=== PATIENT | male | born 1930 | race Caucasian/White ===

== ENCOUNTER 2016-09-22 11:26 | Emergency (ER) | payer MEDICARE, BC ==
[2016-09-22] MEDS ORDERED: SODIUM CHLORIDE 0.9% 1,000 ML IV STA (12:08)
--- NOTE | 2016-09-22 12:36 | ED ---
General Adult HPI - General Chief complaint: Extremity Problem,Nontraumatic Stated complaint: LEFT SIDE COLD AND NUMBNESS Time Seen by Provider: 09/22/16 11:54 Source: patient, RN notes reviewed Mode of arrival: ambulatory Limitations: no limitations - History of Present Illness Initial comments: Patient a 85-year-old male who presents emergency room today with chief complaint of cold feeling to left side of his body times one month. Patient does admit that he's been experiencing cold sensation to the left upper and lower extremity over the past month. He states it's been a constant feeling and feels cold to the touch. Patient also admits to feeling some discomfort to the left side of his face. He describes it as pressure. Patient admits is been constant over the last month as well. He denies any other complaints or symptoms. States never had some symptoms this in the past. Patient denies any recent fever, shortness of breath, chest pain, back pain, abdominal pain, nausea or vomiting, dysuria or hematuria, constipation or diarrhea, headaches or visual changes, or any other complaints. - Related Data Home Medications Medication Instructions Recorded Confirmed Aspirin EC [Ecotrin] 325 mg PO DAILY 01/14/14 09/22/16 Atorvastatin [Lipitor] 40 mg PO DAILY 01/14/14 09/22/16 Isosorbide Mononitrate [Imdur] 30 mg PO DAILY 01/14/14 09/22/16 Metoprolol Tartrate [Lopressor] 25 mg PO DAILY 01/14/14 09/22/16 Allergies Allergy/AdvReac Type Severity Reaction Status Date / Time No Known Allergies Allergy Verified 09/22/16 12:17 Review of Systems ROS Statement: Those systems with pertinent positive or pertinent negative responses have been documented in the HPI. ROS Other: All systems not noted in ROS Statement are negative. Past Medical History Past Medical History: Coronary Artery Disease (CAD), Cancer, Chest Pain / Angina , Hyperlipidemia Additional Past Medical History / Comment(s): skin cancer History of Any Multi-Drug Resistant Organisms: None Reported Past Surgical History: Heart Catheterization, Orthopedic Surgery Additional Past Surgical History / Comment(s): left knee arthroscopy, TOTAL LEFT KNEE 03/18/15 Past Anesthesia/Blood Transfusion Reactions: No Reported Reaction Past Psychological History: No Psychological Hx Reported Smoking Status: Never smoker Past Alcohol Use History: Occasional Past Drug Use History: None Reported - Past Family History Father Family Medical History: CVA/TIA Brother(s) Family Medical History: Deep Vein Thrombosis (DVT) General Exam - General Exam Comments Initial Comments: General: The patient is awake and alert, in no distress, and does not appear acutely ill. Eye: Pupils are equal, round and reactive to light, extra-ocular movements are intact. No nystagmus. There is normal conjunctiva bilaterally. No signs of icterus. Ears, nose, mouth and throat: There are moist mucous membranes and no oral lesions. Neck: The neck is supple, there is no tenderness or JVD. Cardiovascular: There is a regular rate and rhythm. No murmur, rub or gallop is appreciated. Respiratory: Lungs are clear to auscultation, respirations are non-labored, breath sounds are equal. No wheezes, stridor, rales, or rhonchi. Gastrointestinal: Soft, non-distended, non-tender abdomen without masses or organomegaly noted. There is no rebound or guarding present. No CVA tenderness. Bowel sounds are unremarkable. Musculoskeletal: Normal ROM, no tenderness. Strength 5/5. Sensation intact. Pulses equal bilaterally 2+. Cap refill less than 2 seconds. Neurological: A&O x 3. CN II-XII intact, There are no obvious motor or sensory deficits. Coordination appears grossly intact. Speech is normal. Skin: Skin is warm and dry and no rashes or lesions are noted. Psychiatric: Cooperative, appropriate mood & affect, normal judgment. Limitations: no limitations Course Vital Signs 09/22/16 09/22/16 11:36 12:38 Temperature 97.8 F 96.8 F L Pulse Rate 60 54 L Respiratory 20 16 Rate Blood Pressure 123/73 122/66 O2 Sat by Pulse 98 949 H Oximetry EKG Findings - EKG Comments: EKG Findings:: EKG performed at 1220: She says regarding 53 bpm. MS interval 202. QRS 98. QT/QTc 440/412. No acute ST changes. Medical Decision Making - Medical Decision Making Patient reexamined at this time shows no signs of distress. Patient's labs been reviewed are unremarkable. Patient's CT of the head is negative for any acute abnormalities. Case was discussed and seen by attending physician . Patient will be discharged as symptoms have been ongoing over the past month. Patient stable here the emergency room feels comfortable being discharged following up. Was discussed with neurology. Advised to return to emergency room if any symptoms increase or worsen or for any other concerns. - Lab Data Result diagrams: 09/22/16 12:30 09/22/16 12:30 Lab Results 09/22/16 09/22/16 09/22/16 Range/Units 12:30 12:30 12:30 WBC 6.7 (3.8-10.6) k/uL RBC 4.35 (4.30-5.90) m/uL Hgb 14.0 (13.0-17.5) gm/dL Hct 41.1 (39.0-53.0) % MCV 94.5 (80.0-100.0) fL MCH 32.1 (25.0-35.0) pg MCHC 33.9 (31.0-37.0) g/dL RDW 13.3 (11.5-15.5) % Plt Count 196 (150-450) k/uL Neutrophils % 70 % Lymphocytes % 19 % Monocytes % 6 % Eosinophils % 3 % Basophils % 0 % Neutrophils # 4.7 (1.3-7.7) k/uL Lymphocytes # 1.3 (1.0-4.8) k/uL Monocytes # 0.4 (0-1.0) k/uL Eosinophils # 0.2 (0-0.7) k/uL Basophils # 0.0 (0-0.2) k/uL PT 10.7 (9.0-12.0) sec INR 1.1 (<1.1) APTT 25.1 (22.0-30.0) sec Sodium 138 (137-145) mmol/L Potassium 4.5 (3.5-5.1) mmol/L Chloride 104 (98-107) mmol/L Carbon Dioxide 24 (22-30) mmol/L Anion Gap 10 mmol/L BUN 18 (9-20) mg/dL Creatinine 0.80 (0.66-1.25) mg/dL Est GFR (MDRD) Af Amer >60 (>60 ml/min/1.73 sqM) Est GFR (MDRD) Non-Af >60 (>60 ml/min/1.73 sqM) Glucose 91 (74-99) mg/dL Calcium 9.1 (8.4-10.2) mg/dL Total Bilirubin 0.8 (0.2-1.3) mg/dL AST 29 (17-59) U/L ALT 24 (21-72) U/L Alkaline Phosphatase 98 (38-126) U/L Troponin I (0.000-0.034) ng/mL Total Protein 6.5 (6.3-8.2) g/dL Albumin 3.9 (3.5-5.0) g/dL 09/22/16 Range/Units 12:30 WBC (3.8-10.6) k/uL RBC (4.30-5.90) m/uL Hgb (13.0-17.5) gm/dL Hct (39.0-53.0) % MCV (80.0-100.0) fL MCH (25.0-35.0) pg MCHC (31.0-37.0) g/dL RDW (11.5-15.5) % Plt Count (150-450) k/uL Neutrophils % % Lymphocytes % % Monocytes % % Eosinophils % % Basophils % % Neutrophils # (1.3-7.7) k/uL Lymphocytes # (1.0-4.8) k/uL Monocytes # (0-1.0) k/uL Eosinophils # (0-0.7) k/uL Basophils # (0-0.2) k/uL PT (9.0-12.0) sec INR (<1.1) APTT (22.0-30.0) sec Sodium (137-145) mmol/L Potassium (3.5-5.1) mmol/L Chloride (98-107) mmol/L Carbon Dioxide (22-30) mmol/L Anion Gap mmol/L BUN (9-20) mg/dL Creatinine (0.66-1.25) mg/dL Est GFR (MDRD) Af Amer (>60 ml/min/1.73 sqM) Est GFR (MDRD) Non-Af (>60 ml/min/1.73 sqM) Glucose (74-99) mg/dL Calcium (8.4-10.2) mg/dL Total Bilirubin (0.2-1.3) mg/dL AST (17-59) U/L ALT (21-72) U/L Alkaline Phosphatase (38-126) U/L Troponin I <0.012 (0.000-0.034) ng/mL Total Protein (6.3-8.2) g/dL Albumin (3.5-5.0) g/dL Disposition Clinical Impression: Paresthesia Disposition: HOME SELF-CARE Condition: Good Instructions: Paresthesia (ED) Additional Instructions: Please follow-up with family doctor/neurologist in the next 2 days. Please return to emergency room if the symptoms increase or worsen or for any other concerns. Referrals: None,Stated [Primary Care Provider] - 1-2 days Monet Gilmore MD [STAFF PHYSICIAN] - 1-2 days Time of Disposition: 14:32
[2016-09-22 12:45] LABS: Basophils % (A) 0 %; Eosinophils # (A) 0.2 k/uL (0-0.7); Eosinophils % (A) 3 %; HCT 41.1 % (39.0-53.0); HDW 2.36; Luc # (Auto) 0.11; Luc % (Auto) 2; Lymphocytes # (A) 1.3 k/uL (1.0-4.8); Lymphocytes % (A) 19 %; MCH 32.1 pg (25.0-35.0); MCHC 33.9 g/dL (31.0-37.0); MCV 94.5 fL (80.0-100.0); Mean Platelet Volume 6.9; Monocytes # (A) 0.4 k/uL (0-1.0); Monocytes % (A) 6 %; Neutrophils # (A) 4.7 k/uL (1.3-7.7); Neutrophils % (A) 70 %; RBC 4.35 m/uL (4.30-5.90); RDW 13.3 % (11.5-15.5); WBC 6.7 k/uL (3.8-10.6); WBC (Perox) 6.75
[2016-09-22 12:52] LABS: INR 1.1 (<1.1); Partial Thromboplastin Time 25.1 sec (22.0-30.0); Prothrombin Time 10.7 sec (9.0-12.0)
[2016-09-22 13:16] VITALS: RESP 16
--- NOTE | 2016-09-22 13:21 | CT ---
EXAMINATION TYPE: CT brain wo con DATE OF EXAM: 09/22/2016 1:14 PM COMPARISON: Previous study dated 01/24/2011 HISTORY: Patient having weakness and pain CT DLP: 1063.6 mGycm Automated exposure control for dose reduction was used. FINDINGS: There are generalized changes of sulcal prominence and ventriculomegaly, compatible with atrophic aruna nge. There is diffuse periventricular white matter lucency, compatible with chronic ischemic change. There is no acute focal lesion, mass effect or midline shift identified. I do not see evidence of int racranial blood. There is minimal physiologic calcification of the basal ganglia. Visualized portions of the paranasal sinuses and mastoids are clear. No depressed skull fracture is s een. IMPRESSION: 1. NO ACUTE INTRACRANIAL ABNORMALITY. 2. ATROPHIC CHANGE. 3. CHRONIC WHITE MATTER ISCHEMIC CHANGE.
[2016-09-22 13:24] LABS: ALT 24 U/L (21-72); AST 29 U/L (17-59); Alkaline Phosphatase 98 U/L (38-126); Anion Gap 10 mmol/L; Blood Urea Nitrogen 18 mg/dL (9-20); Calcium 9.1 mg/dL (8.4-10.2); Carbon Dioxide 24 mmol/L (22-30); Chloride 104 mmol/L (98-107); Glucose 91 mg/dL (74-99); Non-African American GFR(MDRD) >60 (>60 ml/min/1.73 sqM); Potassium 4.5 mmol/L (3.5-5.1); Sodium 138 mmol/L (137-145); Total Bilirubin 0.8 mg/dL (0.2-1.3); Total Protein 6.5 g/dL (6.3-8.2)
[2016-09-22 15:33] VITALS: BP 126/66; PULSE 57; TEMP 98
== END 2016-09-22 15:32 | disposition home or self-care (01) ==
LOC: EC 11:26
DX: R20.2 Paresthesia of skin (principal); E78.5 Hyperlipidemia, unspecified; I25.10 Atherosclerotic heart disease of native coronary artery without angina pectoris; Z85.828 Personal history of other malignant neoplasm of skin; Z79.82 Long term (current) use of aspirin; Z79.899 Other long term (current) drug therapy
CPT/HCPCS: 36415; 70450; 80053; 84484; 85025; 85610; 85730; 93005; 96360; 96361; 99284

== ENCOUNTER → 2017-11-27 | Outpatient (CLI) | payer MEDICARE, BC ==
--- NOTE | 2017-12-06 09:36 | P.ARTDOP ---
Arterial Doppler LOWER EXTREMITY ARTERIAL DOPPLER: DATE OF SERVICE: 11/27/2017 Reason for study: Bilateral foot numbness. Doppler waveforms: Multiphasic bilaterally throughout. Pulse volume recording: Mild distal blunting on the left otherwise normal. Pressure gradients: None. Ankle-brachial indices: Greater than 1 bilaterally. Toe pressures: 91 on the right, 112 on the left Impression: Normal study.
== END | disposition home or self-care (01) ==
LOC: RADUSWWP 08:51
PROVIDERS: ATTEND Family Medicine
DX: I73.9 Peripheral vascular disease, unspecified (principal)
CPT/HCPCS: 93923

== ENCOUNTER → 2018-11-30 | Outpatient (CLI) | payer MEDICARE, BC ==
--- NOTE | 2018-11-30 09:43 | FL ---
EXAMINATION TYPE: FL sniff test without CXR DATE OF EXAM: 11/30/2018 COMPARISON: Correlation chest x-ray 11/21/2018 HISTORY: 88-year-old male with dysphonia, hoarseness, difficulty swallowing, coughing TECHNIQUE: Real-time fluoroscopy during patient breathing. Total fluoroscopy time: 1 minute 7 seconds. Total images: 18. FINDINGS: At baseline, there is asymmetric elevation of the left hemidiaphragm. During normal quiet respirations, there is normal directional movement and excursion of the diaphragm s. During deep breathing, similar normal direction movement is noted. However, during sniffing maneuver, there is initial hesitancy followed by a short moment of paradoxic al movement of the right hemidiaphragm prior to inferior excursion. IMPRESSION: Slight hesitancy and then initial paradoxical movement of the left hemidiaphragm before proceeding to expected inferior movement. 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
--- NOTE | 2018-11-30 10:13 | CT ---
EXAMINATION TYPE: CT neck chest w con DATE OF EXAM: 11/30/2018 COMPARISON: Radiographs 11/21/2018 HISTORY: 88-year-old male Dysphonia TECHNIQUE: Contiguous axial scanning of the neck and chest performed with IV Contrast, patient inject ed with 100 ml mL of Isovue 300. Coronal/sagittal reconstructions performed. CT DLP: 1075 mGycm Automated exposure control for dose reduction was used. FINDINGS: NECK: Visualized intracranial structures show dominant left vertebral artery. The right vertebral artery ma y terminate as a high,. Generalized supratentorial volume loss with secondary prominence to the ventr icular system. Visualized orbits and globes and mastoid air cells appear clear. Cerumen within the left greater than right external auditory canals. Moderate mucosal thickening right maxillary sinus with trace air-fluid level. Nasopharynx appears clear. Nonspecific 4 mm calcification involving the left epiglottis. Oropharynx otherwise clear. Some limita tion in assessment of the oropharynx due to prominent dental amalgam artifacts. Gliotic subglottic structures as well as the tracheal column appear clear. Tiny 3 mm nodule in each lobe of the thyroid gland. Submandibular glands are satisfactory. Bilateral parotid glands are atrophic. Moderate atherosclerotic calcifications at the right carotid bifurcation. There is a 1.9 x 1.4 x 2.1 cm soft tissue nodule in the high left submandibular space located superio r to the left submandibular gland, referred to axial image 40, coronal image 59, and sagittal image 2 5. Otherwise, no cervical lymphadenopathy identified. Moderate to advanced multilevel spondylotic change in the cervical spine. Degenerative interbody anky losis at C3-C4 with reversal of the normal cervical lordosis and DISH. CHEST: Heart normal size without pericardial effusion. Aorta normal caliber with bowing configuration to the aortic arch and mild atherosclerotic arch calci fications. Calcified right hilar lymph nodes compatible with prior granulomatous disease. No thoracic lymphadeno andrew by CT size criteria. There is right suprahilar/tracheobronchial angle soft tissue density measuring 1.9 x 1.5 x 2.8 cm, re sandrine to axial image 22 and coronal image 40. Otherwise, no thoracic lymphadenopathy. Possible 7 mm right midlung pulmonary nodule versus confluence of vessels, axial image 30. 4 mm anterior right midlung pulmonary nodule, axial image 28. Strandy atelectasis or scarring anterior left midlung. Calcified granuloma basilar right middle lobe. Visualized upper abdomen shows a tiny hilar splenule. Bones: Moderate degenerative change throughout the thoracic spine. Severe degenerative changes of th e right shoulder with a large 5.3 cm anterior ganglion cyst versus joint effusion. There is atrophy o f the right-sided rotator cuff musculature. IMPRESSION: NECK: 1. A 2.1 X 1.9 X 1.4 CM HIGH LEFT SUBAREOLAR SPACE SOFT TISSUE NODULE SUSPICIOUS FOR AN ENLARGED LYMP H NODE LOCATED ABOVE THE SUBMANDIBULAR GLAND. CONSIDER TARGETED ULTRASOUND FOR LOCALIZATION AND TO DE TERMINE IF THIS WOULD BE AMENABLE TO PERCUTANEOUS TISSUE SAMPLING. 2. MODERATE CHRONIC RIGHT MAXILLARY SINUS DISEASE. GIVEN THE TRACE AIR-FLUID LEVEL, CORRELATE FOR POS SIBLE SUPERIMPOSED ACUTE SINUSITIS. CHEST: 1. SOME SOFT TISSUE DENSITY IN THE RIGHT SUPRAHILAR/TRACHEOBRONCHIAL ANGLE REGION MEASURING UP TO 2.8 X 1.9 X 1.5 CM. SCARRING AND EARLY NEOPLASM ARE DIFFERENTIAL CONSIDERATIONS. CONSIDER PET/CT TO EVAL UATE THIS WELL THE FINDING IN THE LEFT UPPER NECK. 2. A 7 MM AND 4 MM RIGHT MID LUNG PULMONARY NODULES WARRANT CLOSE SURVEILLANCE. 3. PRIOR GRANULOMATOUS DISEASE. 4. END-STAGE RIGHT SHOULDER OA. ATROPHIC RIGHT-SIDED ROTATOR CUFF MUSCULATURE SUGGESTING CHRONIC ROTA TOR CUFF TEARS.
== END | disposition home or self-care (01) ==
LOC: RADCTMAIN 08:23
PROVIDERS: ATTEND Internal Medicine Critical Care Medicine
DX: J98.4 Other disorders of lung (principal); R91.8 Other nonspecific abnormal finding of lung field; D71 Functional disorders of polymorphonuclear neutrophils; J98.6 Disorders of diaphragm
CPT/HCPCS: 82565; 84520; 76000; 70491; 71260; 36415; Q9967

== ENCOUNTER 2019-05-01 06:26 | Day surgery (SDC) | payer MEDICARE ==
[~2019-05-01 06:26] MED LIST: ALPRAZolam 0.25 MG TAB PO PRN; SODIUM CHLORIDE 0.9% 1,000 ML in EMPTY BAG 1 BAG IV ONE
[2019-05-01] MEDS ORDERED: ASPIRIN 325 MG TAB PO ONE (07:00)
[2019-05-01 07:06] LABS: Basophils # (A) 0.1 k/uL (0-0.2); Basophils % (A) 2 %; Eosinophils # (A) 0.3 k/uL (0-0.7); Eosinophils % (A) 5 %; HCT 39.8 % (39.0-53.0); HGB 13.4 gm/dL (13.0-17.5); Lymphocytes % (A) 18 %; MCH 31.4 pg (25.0-35.0); MCHC 33.7 g/dL (31.0-37.0); MCV 93.1 fL (80.0-100.0); Mean Platelet Volume 6.1; Monocytes # (A) 0.5 k/uL (0-1.0); Monocytes % (A) 8 %; Neutrophils # (A) 3.7 k/uL (1.3-7.7); Neutrophils % (A) 66 %; Platelet Count 191 k/uL (150-450); RBC 4.28 m/uL (4.30-5.90); RDW 12.9 % (11.5-15.5); WBC 5.7 k/uL (3.8-10.6)
[2019-05-01 07:12] VITALS: RESP 18
[2019-05-01 07:16] LABS: African American GFR (CKD) >90 (>60 ml/min/1.73 sqM); Anion Gap 7 mmol/L; Blood Urea Nitrogen 17 mg/dL (9-20); Calcium 8.9 mg/dL (8.4-10.2); Carbon Dioxide 25 mmol/L (22-30); Chloride 105 mmol/L (98-107); Glucose 97 mg/dL (74-99); Potassium 4.3 mmol/L (3.5-5.1); Sodium 137 mmol/L (137-145)
[2019-05-01] MEDS ORDERED: SODIUM CHLORIDE 0.9% 500 ML 500 ML with niCARdipine 6.25 MG, NITROGLYCERIN-D5W PMX 0.05... IV ONE ×8 (07:21→08:00)
[2019-05-01] MEDS ORDERED: MIDAZOLAM 2 MG/2 ML VIAL IVP ONE (08:04)
[2019-05-01] MEDS ORDERED: LIDOCAINE 1% INJ 10MG/ML (20 ML MDV) SQ ONE (08:08)
[2019-05-01] MEDS ORDERED: HEPARIN SODIUM 1,000 UN/ML (10ML VL) IV ONE (08:25)
[2019-05-01] MEDS ORDERED: NITROGLYCERIN 1000MCG/10ML SYRINGE INTRAARTER ONE (08:40)
[2019-05-01] MEDS ORDERED: IOPAMIDOL-250 100ML BTL INTRAARTER ONE (08:45)
[2019-05-01] MEDS ORDERED: CLOPIDOGREL 75 MG TAB PO ONE (08:54)
[2019-05-01] MEDS ORDERED: SODIUM CHLORIDE 0.9% 1,000 ML IV SCH (09:00)
--- NOTE | 2019-05-01 09:24 | AN ---
ANGIOGRAPHY REPORT PERCUTANEOUS PERIPHERAL INTERVENTION: DATE OF SERVICE: May 01, 2019 PERFORMING PHYSICIAN: Vishal Aquino MD. PROCEDURE PERFORMED: 1. Selective right anterior tibial angiogram. 2. An atherectomy of the right anterior tibial artery using the orbital atherectomy device from [employer]. 3. Successful balloon angioplasty of the right anterior tibial artery using 3.0 x 40 mm balloon with an excellent angiographic result and reduction of stenosis from 80% to 0%. INDICATION: This is an 88-year-old gentleman who was in good physical and mental shape who was experiencing bilateral lower extremities intermittent claudication. He does have hypertension and dyslipidemia. He underwent a peripheral angiogram which showed severe [id number] disease bilaterally with tight right anterior tibial and occluded left anterior tibial artery. Because of that, he was brought today to undergo a RECORDS TECHNICIAN of the right anterior tibial artery. COMPLICATION: None. LEVEL OF SEDATION: Moderate with sedation length of 35 minutes. APPROACH: Right anterior tibial artery. PROCEDURE DESCRIPTION: After obtaining an informed consent, the patient was brought to the cardiac laborer sawmill. The right anterior tibial artery was cannulated using micropuncture technique under ultrasound guidance, I did after that placed a 5/6 sheath in the right anterior tibial artery. Subsequently, continuous cocktail infusion of heparin, verapamil, and nitroglycerin was initiated. After that I gave the patient 6000 units of heparin IV. I did selective right anterior tibial artery angiogram. Subsequently I did wire the right anterior tibial artery using a 0.[address] wire which was subsequently exchanged into 0.014 [employer]. I did after that atherectomy of the right anterior tibial artery using the orbital atherectomy device from [employer] using 1.25 mm verna. I did that under low speed times two. After that I did balloon angioplasty using 3.0 x 40 mm balloon with the following angiogram showing good angiographic results. After that I did the following angiogram showing excellent angiographic results and the procedure was completed without any complication. POSTPROCEDURE MANAGEMENT: 1. Dual anti-platelet therapy. 2. Risk factors modifications. 3. Follow up with the patient. MMODL / IJN: [id number] /
--- NOTE | 2019-05-01 10:18 | IR ---
EXAMINATION TYPE: IR derrick boat captain tibioperoneal branchs DATE OF EXAM: 05/01/2019 COMPARISON: NONE HISTORY: Fluoroscopy time. Fluoroscopy was provided to the referring clinician.
[2019-05-01 10:26] VITALS: BMI 26.7
[2019-05-01] MEDS: ATORVASTATIN 40 MG TAB PO SCH (11:42)
[2019-05-01] MEDS: METOPROLOL TARTRATE 25 MG TAB PO SCH (11:42)
[2019-05-01] MEDS: ISOSORBIDE MONONITRATE ER 30 MG TAB.ER.24H PO SCH (11:42)
[2019-05-02 06:37] LABS: Basophils % (A) 0 %; Eosinophils # (A) 0.2 k/uL (0-0.7); Eosinophils % (A) 4 %; HCT 36.9 % (39.0-53.0); Lymphocytes # (A) 0.9 k/uL (1.0-4.8); Lymphocytes % (A) 15 %; MCH 30.3 pg (25.0-35.0); MCHC 32.4 g/dL (31.0-37.0); MCV 93.5 fL (80.0-100.0); Mean Platelet Volume 6.2; Monocytes # (A) 0.3 k/uL (0-1.0); Monocytes % (A) 6 %; Neutrophils # (A) 4.1 k/uL (1.3-7.7); Neutrophils % (A) 73 %; Platelet Count 153 k/uL (150-450); RBC 3.95 m/uL (4.30-5.90); RDW 12.9 % (11.5-15.5); WBC 5.7 k/uL (3.8-10.6)
[2019-05-02 06:46] LABS: African American GFR (CKD) >90 (>60 ml/min/1.73 sqM); Anion Gap 5 mmol/L; Blood Urea Nitrogen 12 mg/dL (9-20); Calcium 8.6 mg/dL (8.4-10.2); Carbon Dioxide 26 mmol/L (22-30); Chloride 107 mmol/L (98-107); Glucose 90 mg/dL (74-99); Sodium 138 mmol/L (137-145)
[2019-05-02] MEDS: ISOSORBIDE MONONITRATE ER 30 MG TAB.ER.24H PO SCH (08:58)
[2019-05-02] MEDS: ATORVASTATIN 40 MG TAB PO SCH (08:58)
[2019-05-02] MEDS: METOPROLOL TARTRATE 25 MG TAB PO SCH (08:58)
[2019-05-02] MEDS ORDERED: CLOPIDOGREL 75 MG TAB PO SCH (09:00)
[2019-05-02] MEDS ORDERED: ASPIRIN 325 MG TAB PO SCH (09:00)
[2019-05-02 09:02] VITALS: BP 137/72; PULSE 99; TEMP 97.4
--- NOTE | 2019-05-02 09:12 | P.PN ---
Subjective Progress Note Date: 05/02/19 Discharge note This is an 88-year-old gentleman who was experiencing bilateral lower extremity intermittent claudication, has history of hypertension and hyperlipidemia. He underwent a peripheral angiogram which showed some below the knee disease bilaterally with tight right anterior tibial and occluded left anterior tibial artery because of that he was brought to the hospital and undergo TELECOMMUNICATION TOWER TECHNICIAN of the [facility] anterior tibial artery by Dr. Monge. Patient was taken to the cardiac catheterization lab, underwent arthrectomy of the right anterior tibial artery using orbital arthrectomy device from [facility], successful balloon angioplasty of the right anterior tibial artery was performed. The patient was seen and examined this morning and is doing well. No problems through the night last night. Blood pressure 137/70 with a heart rate of 90, 97% on room air. White blood cell count 5.7, hemoglobin 12.0, platelet count 153. Sodium 138, potassium 4.0, BUN 12 and creatinine 0.7. Objective - Vital Signs Vital signs: Vital Signs Temp 98.3 F 05/02/19 00:44 Pulse 74 05/02/19 03:42 Resp 18 05/02/19 03:42 BP 130/72 05/02/19 03:42 Pulse Ox 97 05/02/19 03:42 Intake & Output 05/01/19 05/02/19 05/02/19 18:59 06:59 18:59 Intake Total 1176 240 Output Total 250 Balance 926 240 Weight 83.5 kg Intake: IV 570 Oral 606 240 Output: Urine 250 Other: # Voids 1 1 - Exam PHYSICAL EXAMINATION: GENERAL: 88-year-old gentleman in no acute distress at the time of my examination HEENT: Head is atraumatic, normocephalic. Pupils equal, round. Sclera anicteric. Conjunctiva are clear. Mucous membranes of the mouth are moist. Neck is supple. There is no elevated jugular venous pressure. No carotid bruit is heard. HEART EXAMINATION: Heart S1, S2 normal. No murmur or gallop heard. CHEST EXAMINATION: Lungs are clear to auscultation and precussion. No chest wall tenderness is noted on palpation or with deep breathing. ABDOMEN: Soft, nontender. Bowel sounds are heard. No organomegaly noted. EXTREMITIES: 2+ peripheral pulses with no evidence of peripheral edema and no calf tenderness noted. Right groin is soft, no evidence of any hematoma. NEUROLOGIC patient is awake, alert and oriented 3 . . - Labs CBC & Chem 7: 05/02/19 06:09 05/02/19 06:09 Labs: Abnormal Lab Results - Last 24 Hours (Table) 05/02/19 Range/Units 06:09 RBC 3.95 L (4.30-5.90) m/uL Hgb 12.0 L (13.0-17.5) gm/dL Hct 36.9 L (39.0-53.0) % Lymphocytes # 0.9 L (1.0-4.8) k/uL Assessment and Plan Plan: Assessment and plan #1 status post arthrectomy of the right anterior tibial artery with successful balloon angioplasty of the right anterior tibial artery #2 hypertension #3 hyperlipidemia Plan Patient will be discharged home today, follow-up appointment with Dr. Monge in the office in one week. Discharge medications include aspirin 81 mg daily, Lipitor 40 mg daily, Plavix 75 mg daily, Imdur 30 mg daily, metoprolol 25 mg daily. DNP note has been reviewed, I agree with a documented findings and plan of care. Patient was seen and examined.
== END 2019-05-02 10:41 | disposition home or self-care (01) ==
LOC: CATHCVL 06:26 → 3SCARD 08:45 → CATHCVL 05-02 10:41
PROVIDERS: ATTEND Internal Medicine Interventional Cardiology
DX: I70.213 Atherosclerosis of native arteries of extremities with intermittent claudication, bilateral legs (principal); I25.10 Atherosclerotic heart disease of native coronary artery without angina pectoris; I10 Essential (primary) hypertension; E78.5 Hyperlipidemia, unspecified; I77.9 Disorder of arteries and arterioles, unspecified; M25.50 Pain in unspecified joint; E66.3 Overweight; Z68.26 Body mass index [BMI] 26.0-26.9, adult; Z79.82 Long term (current) use of aspirin; Z79.899 Other long term (current) drug therapy
CPT/HCPCS: 37229; 80048 ×2; 85025 ×2; C1894 ×2; C1714; C1769 ×4; C1725; J2250; J1644 ×2; J2001; Q9966

== ENCOUNTER 2019-06-10 08:31 | Day surgery (SDC) | payer MEDICARE ==
[2019-06-06 10:58] VITALS: BMI 26.4
[~2019-06-10 08:31] MED LIST changes: +ASPIRIN 325 MG TAB PO STA
[2019-06-10 09:20] LABS: Basophils % (A) 0 %; Eosinophils # (A) 0.2 k/uL (0-0.7); Eosinophils % (A) 3 %; HCT 40.5 % (39.0-53.0); HGB 13.5 gm/dL (13.0-17.5); Lymphocytes # (A) 0.7 k/uL (1.0-4.8); Lymphocytes % (A) 15 %; MCH 31.3 pg (25.0-35.0); MCHC 33.4 g/dL (31.0-37.0); MCV 93.6 fL (80.0-100.0); Monocytes # (A) 0.4 k/uL (0-1.0); Monocytes % (A) 7 %; Neutrophils # (A) 3.7 k/uL (1.3-7.7); Neutrophils % (A) 73 %; Platelet Count 184 k/uL (150-450); RBC 4.32 m/uL (4.30-5.90); RDW 12.9 % (11.5-15.5); WBC 5.1 k/uL (3.8-10.6)
[2019-06-10 09:29] LABS: African American GFR (CKD) >90 (>60 ml/min/1.73 sqM); Anion Gap 8 mmol/L; Blood Urea Nitrogen 18 mg/dL (9-20); Calcium 9.1 mg/dL (8.4-10.2); Carbon Dioxide 24 mmol/L (22-30); Chloride 107 mmol/L (98-107); Glucose 92 mg/dL (74-99); Non-African American GFR(CKD) 80 (>60 ml/min/1.73 sqM); Potassium 4.1 mmol/L (3.5-5.1); Sodium 139 mmol/L (137-145)
[2019-06-10] MEDS ORDERED: MIDAZOLAM 2 MG/2 ML VIAL IV ONE (11:10)
[2019-06-10] MEDS ORDERED: SODIUM CHLORIDE 0.9% 500 ML 500 ML with niCARdipine 6.25 MG, NITROGLYCERIN-D5W PMX 0.05... IV ONE ×4 (11:15)
[2019-06-10] MEDS ORDERED: LIDOCAINE 1% INJ 10MG/ML (20 ML MDV) SQ ONE (11:21)
[2019-06-10] MEDS ORDERED: NITROGLYCERIN 1000MCG/10ML SYRINGE INTRAARTER ONE ×2 (12:08→12:09)
[2019-06-10] MEDS ORDERED: IOPAMIDOL-250 100ML BTL INTRAARTER ONE (12:14)
[2019-06-10] MEDS ORDERED: CLOPIDOGREL 75 MG TAB PO ONE (12:22)
[2019-06-10] MEDS ORDERED: SODIUM CHLORIDE 0.9% 1,000 ML IV SCH (12:30)
--- NOTE | 2019-06-10 15:14 | IR ---
Fluoroscopy HISTORY: Peripheral vascular occlusive disease 13.6 minutes fluoroscopy time supplied to the referring clinician. 196 intraoperative C-arm images d ocument the procedure. See dictated report from cardiology.
--- NOTE | 2019-06-10 22:04 | PCN ---
PROCEDURE NOTE DATE OF PROCEDURE: 06/10/2019 PERFORMING PHYSICIAN: Vishal Aquino M.D. PROCEDURES PERFORMED: 1. Selective left anterior tibial artery angiogram. 2. Atherectomy of the left anterior tibial artery using a 1.25 mm verna from [facility]. 3. Successful balloon angioplasty of the left anterior tibial artery using a 3.0 x 100 mm balloon with an excellent angiographic result and reduction of stenosis from 100% to 0%. INDICATION: This is a very pleasant 88-year-old gentleman with history of hypertension as well as dyslipidemia and history of coronary artery disease who was experiencing bilateral lower extremity intermittent claudication. Beside that, he was also starting to form skin changes involving the toes bilaterally. Because of that, he underwent an aortogram with runoff which revealed occluded anterior tibial arteries bilaterally. He underwent RAILWAY SIGNAL ELECTRICIAN of the right anterior tibial artery and was brought today to undergo RAILWAY SIGNAL ELECTRICIAN of the left anterior tibial artery. APPROACH: Left anterior tibial artery. COMPLICATIONS: None. LEVEL OF SEDATION: Moderate, with sedation length of one hour. PROCEDURE DESCRIPTION: After obtaining informed consent, the patient was brought to the cardiac quality assurance lab technician. The left anterior tibial artery was cannulated using micropuncture technique under ultrasound guidance. The micropuncture wire passed easily. Then I placed a slender 5/6- Fijian sheath. At that point, continuous cocktail infusion including nitroglycerin, heparin and verapamil, was initiated. Beside that, the patient was given 8000 units of heparin IV with additional 2000 throughout the procedure. I did selective left anterior tibial artery angiogram which revealed occluded anterior tibial artery in the mid portion. I attempted to cross that using an 0.[address] wire and I was unsuccessful. I was successful using an 0.018 gold-tipped glidewire with the backup support of 0.018 [facility]I catheter. After that I exchanged my wire for a [employer] and did atherectomy using a 1.25 mm soft verna. After that I did balloon angioplasty using a 3.0 x 200 mm balloon with the following angiogram showing excellent angiographic results and the procedure was completed without any complication. POST-PROCEDURE MANAGEMENT: 1. Dual anti-platelet therapy. 2. Risk factor modifications. 3. Follow up with the patient. MMODL / IJN: [id number] /
[2019-06-10 22:18] VITALS: RESP 18
[2019-06-11 05:31] VITALS: PULSE 72; TEMP 98.2
[2019-06-11 06:33] LABS: African American GFR (CKD) >90 (>60 ml/min/1.73 sqM); Non-African American GFR(CKD) 79 (>60 ml/min/1.73 sqM)
[2019-06-11 08:15] VITALS: BP 136/74
[2019-06-11] MEDS ORDERED: CYANOCOBALAMIN 500 MCG TAB PO SCH (09:00)
[2019-06-11] MEDS ORDERED: METOPROLOL TARTRATE 25 MG TAB PO SCH (09:00)
[2019-06-11] MEDS ORDERED: ISOSORBIDE MONONITRATE ER 30 MG TAB.ER.24H PO SCH (09:00)
[2019-06-11] MEDS ORDERED: NON FORMULARY DRUG (Biotin [Biotin] 5,000 MCG) PO SCH (09:00)
[2019-06-11] MEDS ORDERED: ATORVASTATIN 40 MG TAB PO SCH (09:00)
[2019-06-11] MEDS ORDERED: ASPIRIN 325 MG TAB PO SCH (09:00)
[2019-06-11] MEDS ORDERED: CLOPIDOGREL 75 MG TAB PO SCH (09:00)
--- NOTE | 2019-06-11 09:41 | DS ---
DISCHARGE SUMMARY ADMISSION DATE: June 10, 2019 DISCHARGE DATE: June 11, 2019 BRIEF HISTORY: This is an 88-year-old gentleman who was admitted to the hospital yesterday and underwent successful opening left anterior tibial artery which was chronically occluded. The procedure was performed from the left pedal access. The procedure was performed with good angiographic results and without any complication. The site is soft and without any hematoma with mild bruises. The patient is going to be discharged home on dual antiplatelet therapy and I will follow up with the patient next week in the office. MMODL / IJN: [id number] /
== END 2019-06-11 09:09 | disposition home or self-care (01) ==
LOC: CATHCVL 08:31 → 3SCARD 14:18 → CATHCVL 06-11 09:09
PROVIDERS: ATTEND Internal Medicine Interventional Cardiology
DX: I70.213 Atherosclerosis of native arteries of extremities with intermittent claudication, bilateral legs (principal); I70.92 Chronic total occlusion of artery of the extremities; I25.10 Atherosclerotic heart disease of native coronary artery without angina pectoris; I10 Essential (primary) hypertension; E78.5 Hyperlipidemia, unspecified; Z79.82 Long term (current) use of aspirin; Z79.02 Long term (current) use of antithrombotics/antiplatelets; Z79.899 Other long term (current) drug therapy
CPT/HCPCS: 37229; 85347; 80048; 82565; 85025; C1894 ×2; C1714; C1769 ×5; C1725; J2250; J1644 ×2; J2001; Q9966